=== PATIENT | female | born 1985 | race Caucasian/White ===

== ENCOUNTER → 2016-08-04 | Outpatient (REF) | payer OTHER | LOC: M SFHCLERA 17:24 | PROVIDERS: ATTEND Family Medicine | DX: L29.8 Other pruritus (principal); R10.13 Epigastric pain ==

== ENCOUNTER → 2016-09-19 | Outpatient (REF) | payer OTHER | LOC: M SFHCLERA 13:35 | PROVIDERS: ATTEND Family Medicine | DX: B34.9 Viral infection, unspecified (principal) ==

== ENCOUNTER → 2016-12-03 | Outpatient (REF) | payer OTHER | LOC: M SFHCLERA 09:06 | PROVIDERS: ATTEND Family Medicine | DX: R10.13 Epigastric pain (principal) ==

== ENCOUNTER → 2016-12-03 | Outpatient (CLI) | payer OTHER ==
[2016-12-03 11:19] LABS: MEAN CORPUSCULAR HEMOGLOBIN 28.6 pg (27.0-33.0); MEAN CORPUSCULAR HGB CONC 32.7 g/dl (32.0-36.5); MEAN CORPUSCULAR VOLUME 87.6 fl (80.0-96.0); RED CELL DISTRIBUTION WIDTH 13.6 % (11.5-14.5); WHITE BLOOD COUNT 7.6 K/mm3 (4.0-10.0)
[2016-12-03 11:36] LABS: ALBUMIN 3.2 GM/DL (3.2-5.2); ANION GAP 7 MEQ/L (8-16); BLOOD UREA NITROGEN 14 MG/DL (7-18); CALCIUM LEVEL 8.4 MG/DL (8.5-10.1); CARBON DIOXIDE LEVEL 24 MEQ/L (21-32); CHLORIDE LEVEL 108 MEQ/L (98-107); CREATININE FOR GFR 0.73 MG/DL (0.55-1.02); GLOMERULAR FILTRATION RATE > 60.0 (>60); GLUCOSE, FASTING 114 MG/DL (70-105); PHOSPHORUS LEVEL 2.9 MG/DL (2.5-4.9); POTASSIUM SERUM 4.4 MEQ/L (3.5-5.1); SODIUM LEVEL 139 MEQ/L (136-145)
== END ==
LOC: M LRY 09:01
PROVIDERS: ATTEND Internal Medicine Nephrology
DX: Z00.00 Encounter for general adult medical examination without abnormal findings (principal)

== ENCOUNTER → 2016-12-09 | Outpatient (REF) | payer OTHER | LOC: M LAB REF 16:34 | PROVIDERS: ATTEND Nurse Practitioner Women's Health | DX: N39.0 Urinary tract infection, site not specified (principal) ==

== ENCOUNTER → 2016-12-22 | Outpatient (CLI) | payer OTHER ==
--- NOTE | 2016-12-22 15:07 | REP ---
Clinical: Irregular menstrual cycles . Technique: Transabdominal pelvic ultrasound followed by transvaginal examination for better evaluation of the endometrium and adnexa with color Doppler evaluation of the ovaries. Findings: Bladder is unremarkable and measures 6.7 x 5.2 x 6.7 cm . Normal anteverted uterus measures 8.7 x 4.3 x 5.3 cm . The endometrial complex measures 12.1 mm thickness. No discrete uterine or endometrial abnormalities are appreciated. Bilateral ovaries are normal in appearance and vascularity without evidence for torsion. Right ovary measures 3.6 x 2.7 x 2.8 cm with 2.4 cm dominant follicle ; R I = 0.51 . Left ovary measures 1.8 x 1.7 x 1.7 cm ; R I = 0.52 . No pelvic fluid or adnexal mass lesion . Impression: 1. 2.4 cm dominant follicle in the right ovary. Otherwise normal pelvic ultrasound. Signed by Tesfaye Perez MD 12/22/2016 02:59 P
== END ==
LOC: M RAD 14:08
PROVIDERS: ATTEND Nurse Practitioner Women's Health
DX: R10.32 Left lower quadrant pain (principal)

== ENCOUNTER 2017-02-09 12:13 | Outpatient (CLI) | payer OTHER ==
[~2017-02-09] VITALS: Ht 167.6 cm; Wt 121.1 kg
[2017-02-09] MEDS ORDERED: NS 1,000 ML IV SCH (12:30)
[2017-02-09] MEDS ORDERED: LIDOCAINE 2% INJ 100 MG/5 ML SDV (FOR ANES.) As Ordered ONE (13:27)
[2017-02-09] MEDS ORDERED: PROPOFOL 200 MG/20 ML VIAL As Ordered ONE ×2 (13:27→13:58)
--- NOTE | 2017-02-09 13:32 | ROOR ---
Patient Name: Sarah Mcdaniel Procedure Date: 02/09/2017 1:20 PM Date of : 1985 Age: 31 Room: [facility] Gender: Female Note Status: Finalized Procedure: Upper GI endoscopy Indications: Heartburn, Suspected irritable bowel syndrome, Abdominal bloating, Diarrhea Providers: Tavo SHEPHERD MD Referring MD: Mary MELCHOR MD Requesting Provider: Medicines: Monitored Anesthesia Care Complications: No immediate complications. Procedure: Pre-Anesthesia Assessment: - The heart rate, respiratory rate, oxygen saturations, blood pressure, adequacy of pulmonary ventilation, and response to care were monitored throughout the procedure. The Endoscope was introduced through the mouth, and advanced to the second part of duodenum. The upper GI endoscopy was accomplished without difficulty. The patient tolerated the procedure well. Findings: The esophagus was normal. The stomach was normal. The examined duodenum was normal. Biopsies for histology were taken with a cold forceps in the second portion of the duodenum for evaluation of celiac disease. Impression: - Normal esophagus. - Normal stomach. - Normal examined duodenum. - Biopsies were taken with a cold forceps for evaluation of celiac disease. Recommendation: - Observe patient's clinical course. - Continue present medications. - Telephone endoscopist for pathology results in 2 weeks. Tavo Shepherd MD Tavo SHEPHERD MD 02/09/2017 1:32:15 PM This report has been signed electronically. Number of Addenda: 0 Note Initiated On: 02/09/2017 1:20 PM Estimated Blood Loss: Estimated blood loss: none.
--- NOTE | 2017-02-09 13:46 | ROOR ---
Patient Name: Sarah Mcdaniel Procedure Date: 02/09/2017 1:21 PM Date of : 1985 Age: 31 Room: [facility] Gender: Female Note Status: Finalized Procedure: Colonoscopy Indications: Generalized abdominal pain, Clinically significant diarrhea of unexplained origin, Suspected irritable bowel syndrome Providers: Tavo SHEPHERD MD Referring MD: Mary MELCHOR MD Requesting Provider: Medicines: Monitored Anesthesia Care Complications: No immediate complications. Procedure: Pre-Anesthesia Assessment: - The heart rate, respiratory rate, oxygen saturations, blood pressure, adequacy of pulmonary ventilation, and response to care were monitored throughout the procedure. The Colonoscope was introduced through the anus and advanced to 8 cm into the ileum. The colonoscopy was performed without difficulty. The patient tolerated the procedure well. The quality of the bowel preparation was good. Findings: The perianal and digital rectal examinations were normal. (Exam: Complete, Prep: Good or Excellent.) Two sessile polyps were found in the ascending colon. The polyps were 3 to 5 mm in size. These polyps were removed with a cold snare. Resection and retrieval were complete. Small Internal Hemorrhoids. The exam was otherwise without abnormality on direct and retroflexion views. The terminal ileum appeared normal. Impression: - (Exam: Complete, Prep: Good or Excellent.) - Two 3 to 5 mm polyps in the ascending colon, removed with a cold snare. Resected and retrieved. - Small Internal Hemorrhoids. - The colon examination was otherwise normal on direct and retroflexion views. - The examined portion of the ileum was normal. - (Irritable Bowel Syndrome/IBS suspected.) Recommendation: - Telephone endoscopist for pathology results in 2 weeks. - If the pathology report reveals adenomatous tissue, then repeat the colonoscopy for surveillance in 3 years. - Use fiber, for example Citrucel, Fibercon, Konsyl or Metamucil. Tavo Shepherd MD Tavo SHEPHERD MD 02/09/2017 1:45:25 PM This report has been signed electronically. Number of Addenda: 0 Note Initiated On: 02/09/2017 1:21 PM Estimated Blood Loss: Estimated blood loss: none.
[2017-02-09 14:05] VITALS: BP 127/70
== END 2017-02-09 14:20 | disposition home or self-care (01) ==
LOC: M OPP 12:13
PROVIDERS: ATTEND Internal Medicine Gastroenterology
DX: R19.7 Diarrhea, unspecified (principal); R10.84 Generalized abdominal pain; R10.13 Epigastric pain; D12.2 Benign neoplasm of ascending colon; K44.9 Diaphragmatic hernia without obstruction or gangrene; R12 Heartburn; R14.0 Abdominal distension (gaseous); D64.9 Anemia, unspecified; F41.9 Anxiety disorder, unspecified; R51 Headache; J45.909 Unspecified asthma, uncomplicated; R06.83 Snoring; N18.1 Chronic kidney disease, stage 1; Z87.440 Personal history of urinary (tract) infections; E66.9 Obesity, unspecified; Z88.8 Allergy status to other drugs, medicaments and biological substances; Z88.5 Allergy status to narcotic agent; Z79.899 Other long term (current) drug therapy

== ENCOUNTER → 2017-02-09 | Outpatient (CLI) | payer OTHER ==
[~2017-02-09] MED LIST: ALBU83IN INH; PROBCAP4 PO
[2017-02-09 13:17] LABS: FREE T4 1.13 NG/DL (0.76-1.46)
== END ==
LOC: M LAB 11:54
PROVIDERS: ATTEND Physician Assistant Medical
DX: R19.7 Diarrhea, unspecified (principal)

== ENCOUNTER 2017-03-08 09:21 | Emergency (ER) | payer OTHER ==
[~2017-03-08] VITALS: Ht 167.6 cm; Wt 122.3 kg
--- NOTE | 2017-03-08 11:28 | REP ---
Clinical: Left lower extremity pain and swelling . Technique: Ruiz scale and color Doppler evaluation using linear high frequency transducer. Findings: Ultrasound examination of the left lower extremity deep venous structures from the common femoral vein to the popliteal vein demonstrates normal compressibility flow and wave patterns in response to respiration and augmentation. There is no evidence for deep venous thrombosis. Impression: No evidence for deep venous thrombosis. Signed by Tesfaye Perez MD 03/08/2017 11:19 A
[2017-03-08 11:30] VITALS: BP 135/95
[2017-05-07] MEDS ORDERED: CLIN150C14 PO (13:30)
[2017-05-07] MEDS ORDERED: ALBU17IN2 INH (13:30)
[2017-05-07] MEDS ORDERED: RANI150T PO (13:30)
== END 2017-03-08 11:32 | disposition home or self-care (01) ==
LOC: M ED 09:21
DX: M79.662 Pain in left lower leg (principal); J45.909 Unspecified asthma, uncomplicated; Z88.5 Allergy status to narcotic agent; Z79.899 Other long term (current) drug therapy

== ENCOUNTER → 2017-03-11 | Outpatient (CLI) | payer OTHER ==
[~2017-03-11] MED LIST changes: +ALBU17IN2 INH; +CLIN150C14 PO; +RANI150T PO
--- NOTE | 2017-03-11 14:04 | REP ---
Clinical: Left lower extremity pain . Technique: Ruiz scale and color Doppler evaluation using linear high frequency transducer. Findings: Ultrasound examination of the left lower extremity deep venous structures from the common femoral vein to the popliteal vein demonstrates normal compressibility flow and wave patterns in response to respiration and augmentation. There is no evidence for deep venous thrombosis. 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 Popliteal fossa is without fluid collection to suggest Diana's cyst. Impression: No evidence for deep venous thrombosis. No evidence for Diana's cyst. Signed by Tesfaye Perez MD 03/11/2017 01:56 P
--- NOTE | 2017-03-11 14:06 | REP ---
Clinical: Pain at the posterior knee. Technique: Real time mejia scale ultrasound examination using linear high frequency transducer. Findings: Directed ultrasound examination to the left popliteal fossa demonstrates normal subcutaneous tissues and musculature. No fluid collection or mass lesion is identified. No evidence for Diana's cyst. Impression: Negative examination. No evidence for fluid collection or mass in the popliteal fossa. Signed by Tesfaye Perez MD 03/11/2017 01:57 P
== END ==
LOC: M RAD 13:30
PROVIDERS: ATTEND Family Medicine
DX: M79.662 Pain in left lower leg (principal)

== ENCOUNTER → 2017-03-14 | Outpatient (REF) | payer OTHER ==
[2017-03-14 14:08] LABS: ANION GAP 8 MEQ/L (8-16); BLOOD UREA NITROGEN 13 MG/DL (7-18); CALCIUM LEVEL 7.9 MG/DL (8.5-10.1); CARBON DIOXIDE LEVEL 26 MEQ/L (21-32); CHLORIDE LEVEL 108 MEQ/L (98-107); CREATININE FOR GFR 0.65 MG/DL (0.55-1.02); GLOMERULAR FILTRATION RATE > 60.0 (>60); GLUCOSE, FASTING 90 MG/DL (70-105); POTASSIUM SERUM 4.2 MEQ/L (3.5-5.1); SODIUM LEVEL 142 MEQ/L (136-145)
== END ==
LOC: M SFHCLERA 11:00
PROVIDERS: ATTEND Family Medicine
DX: M79.662 Pain in left lower leg (principal)

== ENCOUNTER → 2017-03-16 | Outpatient (CLI) | payer OTHER ==
[~2017-03-16] MED LIST changes: +ISOVUE-370 76% 100ML VIAL (Q9967) As Ordered ONE
--- NOTE | 2017-03-16 08:57 | REP ---
CT angiogram of the abdominal aorta, pelvis and bilateral lower extremities: The studies performed with intravenous contrast. There is no abdominal aortic aneurysm or dissection. There is no abdominal aortic stenosis. There is no stenosis at the aortic bifurcation. There is no stenosis of the celiac artery, superior mesenteric artery, right renal arteries or inferior mesenteric artery. There is no stenosis on the right or left common iliac arteries or their bifurcations. There is no stenosis of the external iliac arteries, common femoral arteries or the common femoral artery bifurcations. There is no stenosis in the superficial femoral arteries or profunda femoral arteries on the right or the left. There is no stenosis of the popliteal arteries on the right on the left. The popliteal trifurcations are unremarkable. There is flow across the ankle through the posterior tibial arteries bilaterally. On the left. There is flow across the ankle through the left anterior tibial artery. The left peroneal artery can be visualized to just above the ankle. Is not visualized below the ankle, possibly because of its small size. On the right. There is flow across the ankle through the posterior tibial artery. The anterior tibial artery and peroneal artery are visualized to just above the ankle but not seen crossing the ankle, possibly because of small vessel size. Impression: There are no stenoses. There is flow across the ankle in the posterior tibial arteries. There is flow across the left ankle through the anterior tibial artery. No flow across the ankle is visualized in the left peroneal artery or in the right anterior tibial or peroneal arteries. This may merely be artifact because of small vessel size that cannot be discriminated by CT. CT of the abdomen and pelvis with IV contrast: The visualized lung rodrigues are unremarkable. The hepatic parenchyma, gallbladder, pancreas, spleen, adrenals, kidneys, aorta are unremarkable. The bowel and mesentery are unremarkable. Pelvis: There is a surgical staple ring in the cecum. The patient has history of appendectomy. There is no ascites or adenopathy. The uterus and adnexa are unremarkable. The pelvic bowel loops are unremarkable. Impression: Appendectomy. Otherwise, negative CT of the abdomen and pelvis. Signed by Jax Redding MD 03/16/2017 08:49 A
== END ==
LOC: M RAD 07:39
PROVIDERS: ATTEND Family Medicine
DX: M79.622 Pain in left upper arm (principal)
CPT/HCPCS: 75635; Q9967

== ENCOUNTER 2017-05-14 06:41 | Day surgery (SDC) | payer OTHER ==
[~2017-05-14] VITALS: Ht 167.6 cm; Wt 121.6 kg
[~2017-05-14 06:41] MED LIST changes: -ISOVUE-370 76% 100ML VIAL (Q9967) As Ordered ONE
[2017-05-14] MEDS ORDERED: fentaNYL 100 MCG/2 ML INJECTION (J3010) As Ordered ONE ×2 (06:54→08:37)
[2017-05-14] MEDS ORDERED: MIDAZOLAM INJ 2 MG/2 ML VIAL (J2250) As Ordered ONE (06:55)
[2017-05-14] MEDS ORDERED: LIDOCAINE 2% INJ 100 MG/5 ML SDV (FOR ANES.) As Ordered ONE (06:57)
[2017-05-14] MEDS ORDERED: dexameTHASONE 4 MG/ML 1ML VIAL (J1100) As Ordered ONE (06:59)
[2017-05-14] MEDS ORDERED: ONDANSETRON 4MG/2ML VIAL (J2405) As Ordered ONE (06:59)
[2017-05-14] MEDS ORDERED: PROPOFOL 200 MG/20 ML VIAL As Ordered ONE ×3 (06:59→08:35)
[2017-05-14] MEDS ORDERED: LR 1,000 ML IV ONE (07:00)
[2017-05-14] MEDS ORDERED: LR 1,000 ML IV SCH ×2 (07:00→09:30)
[2017-05-14 07:40] LABS: ANION GAP 9 MEQ/L (8-16); BLOOD UREA NITROGEN 20 MG/DL (7-18); CALCIUM LEVEL 8.8 MG/DL (8.5-10.1); CARBON DIOXIDE LEVEL 22 MEQ/L (21-32); CHLORIDE LEVEL 108 MEQ/L (98-107); CREATININE FOR GFR 0.77 MG/DL (0.55-1.02); GLOMERULAR FILTRATION RATE > 60.0 (>60); GLUCOSE, FASTING 93 MG/DL (70-105); POTASSIUM SERUM 4.6 MEQ/L (3.5-5.1); SODIUM LEVEL 139 MEQ/L (136-145)
[2017-05-14 07:41] LABS: CONTROL LINE UCG INT CTR LINE PRESENT
[2017-05-14] MEDS ORDERED: LIDOCAINE 1% MDV 20ML VIAL As Ordered ONE (07:52)
[2017-05-14] MEDS ORDERED: GLYCOPYRROLATE INJ 0.2 MG/ML 2 ML VIAL As Ordered ONE (07:56)
[2017-05-14] MEDS ORDERED: ACETAMINOPHEN TAB 650MG DOSE (2X325MG) PO PRN (09:30)
[2017-05-14] MEDS ORDERED: ONDANSETRON 4MG/2ML VIAL (J2405) IV PRN (09:30)
[2017-05-14] MEDS ORDERED: fentaNYL 100 MCG/2 ML INJECTION (J3010) IV PRN (09:30)
[2017-05-14] MEDS: PERCOCET 5MG/325MG TAB PO PRN ×2 (09:40→10:45)
[2017-05-14 11:22] VITALS: BP 129/74
--- NOTE | 2017-05-15 07:50 | RO ---
DATE OF PROCEDURE: 05/14/2017 PREPROCEDURE DIAGNOSIS: Menorrhagia, dysmenorrhea. POSTPROCEDURE DIAGNOSES: Menorrhagia, dysmenorrhea, also anterior uterine wall V-shaped defect likely related. PROCEDURE: Dilation and curettage, hysterectomy. Paracervical block. SURGEON: Dr. Anu Kirkpatrick. COLOR CHECKER ROVING OR YARN: ANESTHESIA: Sedation with local. DESCRIPTION OF PROCEDURE: Sarah is brought to the operating room where she was given sedation and paracervical block. We waited a full minute after the block and then had no trouble grasping the cervix. She had good sedation. There was no difficulty with the patient. She was not bucking or struggling. The cervix is well supported, but given that she had the previous that is not a surprise. This uterus is definitely not accessible from below readily but not an issue for this case. The uterus was sounded to 8.5 and the cervical to 4, so we initially had a 4.5 cm length and we dilated the cervix and placed the scope. With the scope, we were able to see that this patient has a V-shaped defect in the anterior uterine wall, just at the top part of the anterior superior cervical canal and then has a secondary narrowing in fairly deep V-shaped defect there. There did not appear to be any disruption of the tissues over this. There does not appear to be any fresh disturbance. This is clearly a healed over old scar. I did have a little bit of endometrial tissue stuck on the scope which interferes with some of the pictures but I was still able to get good pictures of smooth endometrial and endocervical lining over this area. We were then able to see fairly normal endometrial cavity with normal ostia. No polypoid projections. No fibroid, etc. We did curettage and we were able to see that we had not perforated to cause any trouble in that regard and I adjusted the depth to 4 so that we would not be cauterizing over the site of this anterior uterine wall defect. But when we placed the scope, we had failure several times. We re-adjusted. We tried to reposition and just continued to have vacuum failure. Repeated views with the scope confirmed that I did not have a perforation there. We were struggling with the orientation for the NovaSure itself, but post-ablative attempt scopes after the three attempts confirm there was no perforation. There was definitely scraping after the D and C and so changes to the tissue from the curettage, but we did not have a perforation. As best, I can tell, this defect prevented us from passing. We do not have a rollerball in the hospital in the hospital anymore or anything for me to do a non-total ablation for this patient, and of course, [employer] is off the market. We did not have any option other than the NovaSure and the NovaSure kept failing. As best I can tell it is because I just could not get a cervical field, I assumed because of this defect because ox was not than opened externally. But along the cervical canal, there is definitely that anterior sort of cervical V-shaped defect and I think it prevented us from getting a seal for the cavity test, which we failed three times and after that it was stopped. I did of course, try readjusting the tenaculum and holding the cervix in different ways. I tried holding it a little further up on the sides so that we could press the funnel-shaped, sort of Enseal closer. None of those maneuvers were affective. We did develop eventually a little tear in the cervix. This is only about 0.5 cm long from where one of the tenaculum came out. I was trying to get a seal. I do not think it will have impact on this patient and it certainly did not happen until after we tried twice so I do not think that was the cause for the difficulty. But after three attempts we gave up. She did have curettage today but the tissue looks normal. I discussed this with her family. Obviously the patient is medicated. It is not clear to me that she will understand, but I discussed it with her family who are here today with her mother and they are going to followup in the office and discuss whether she wants to have a referral if we can find somebody who still has a roller ball or if she wants to change plans. So the procedure was ended. ESTIMATED BLOOD LOSS: Maybe 5 mL. That was not the issue. SPECIMENS: Endometrial curettings. COMPLICATIONS: As noted we were unable to pass the cavity test on the basis of the views that I could get with the hysteroscope. I think this is based on her anterior cervical anatomy, rather than on a perforation. CONDITION AND DISPOSITION: She did tolerate having this done under local. The patient was not resisting, moving. None of that was the issue with the case. She did quite well under sedation and local as far as the actual ability to work and the adequacy of anesthesia. The patient went she only had sedation local and she was in good condition.
== END 2017-05-14 11:31 | disposition home or self-care (01) ==
LOC: M SDC 06:41
PROVIDERS: ATTEND Obstetrics & Gynecology
DX: N92.0 Excessive and frequent menstruation with regular cycle (principal); N94.6 Dysmenorrhea, unspecified; N85.8 Other specified noninflammatory disorders of uterus; T81.89XA Other complications of procedures, not elsewhere classified, initial encounter; Y92.234 Operating room of hospital as the place of occurrence of the external cause; Y65.8 Other specified misadventures during surgical and medical care; Y93.89 Activity, other specified; Y99.8 Other external cause status; J45.909 Unspecified asthma, uncomplicated; K58.9 Irritable bowel syndrome, unspecified; N18.9 Chronic kidney disease, unspecified; D64.9 Anemia, unspecified; L30.9 Dermatitis, unspecified; F41.9 Anxiety disorder, unspecified; R51 Headache; R06.83 Snoring; Z88.5 Allergy status to narcotic agent; Z88.6 Allergy status to analgesic agent; Z79.899 Other long term (current) drug therapy
CPT/HCPCS: 36415; 58558; 64435; 80048; 84703; 88305; A4649; J1100; J2250; J2405; J3010